=== PATIENT | male | born 1985 | race Caucasian/White ===

== ENCOUNTER 2020-09-08 08:55 | Day surgery (SDC) | payer OTHER ==
[~2020-09-08] VITALS: Ht 190.5 cm; Wt 105.0 kg
[~2020-09-08 08:55] MED LIST: HYDR12.517 PO; LISI-167 PO
[2020-09-08 09:32] VITALS: BP 133/89
[2020-09-08] MEDS ORDERED: LACTATED RINGERS 1,000 ML IV SCH (10:00)
[2020-09-08] MEDS ORDERED: CHLORHEXIDINE 15 ML UDC PO ONE (10:00)
[2020-09-08] MEDS ORDERED: MIDAZOLAM 1 MG/ML, 2ML ONE (10:51)
[2020-09-08] MEDS ORDERED: FENTANYL PF 250 MCG/5ML ONE (10:51)
[2020-09-08] MEDS ORDERED: morphine SULFATE/PF 0.5 MG/ML, 10ML ONE (11:30)
[2020-09-08] MEDS ORDERED: LIDOCAINE/PF 1%-EPI 1:200K, 30 ML ONE (11:30)
[2020-09-08] MEDS ORDERED: VANCOMYCIN 1,000 MG ONE (11:30)
[2020-09-08] MEDS ORDERED: BUPIVACAINE/PF 0.5% ONE (11:30)
[2020-09-08] MEDS ORDERED: BACITRACIN 50,000 UNIT ONE (11:31)
[2020-09-08] MEDS ORDERED: EPINEPHRINE 1 MG/ML, 1ML ONE (11:31)
[2020-09-08] MEDS ORDERED: PROPOFOL 50 ML ONE (12:25)
[2020-09-08] MEDS ORDERED: PROMETHAZINE 25 MG/ML, 1ML IVPush PRN (13:00)
[2020-09-08] MEDS ORDERED: DIAZEPAM 5 MG/ML, 2ML IVPush PRN (13:00)
[2020-09-08] MEDS ORDERED: ACETAMINOPHEN 325 MG TABLET PO PRN (13:00)
[2020-09-08] MEDS ORDERED: hydrALAzine 20 MG/ML, 1ML IV PRN (13:00)
[2020-09-08] MEDS ORDERED: FENTANYL PF 100 MCG/2ML IV PRN (13:00)
[2020-09-08] MEDS ORDERED: HYDROmorphone 1 MG/ML, 1ML INJ IVPush PRN (13:00)
[2020-09-08] MEDS ORDERED: ALBUTEROL SULFATE 2.5 MG/3 ML NPPB PRN (13:00)
[2020-09-08] MEDS ORDERED: LABETALOL 5MG/ML, 20ML IV PRN (13:00)
[2020-09-08] MEDS ORDERED: MEPERIDINE/PF 25MG/0.5ML IVPush PRN (13:00)
[2020-09-08] MEDS ORDERED: METHOCARBAMOL 1,000 MG in DEXTROSE 5% 100 ML IV PRN (13:00)
[2020-09-08] MEDS ORDERED: OXYcodone 5 MG/5 ML ORAL.SOL UDC PO PRN (13:00)
[2020-09-08] MEDS ORDERED: PROPOFOL 10 MG/ML, 20ML ONE (13:44)
[2020-09-08] MEDS ORDERED: NEOSTIGMINE 1 MG/ML, 10ML ONE (13:44)
[2020-09-08] MEDS ORDERED: CEFAZOLIN 1,000 MG ONE (13:44)
[2020-09-08] MEDS ORDERED: GLYCOPYRROLATE 0.2MG/1ML, 5ML ONE (13:44)
[2020-09-08] MEDS ORDERED: ONDANSETRON 2MG/ML, 2ML ONE (13:44)
[2020-09-08] MEDS ORDERED: DEXAMETHASONE 4 MG/ML, 1ML ONE (13:44)
[2020-09-08] MEDS ORDERED: ROCURONIUM 10MG/ML,5ML ONE (13:44)
[2020-09-08] MEDS ORDERED: METOCLOPRAMIDE 5 MG/ML, 2ML ONE (13:58)
== END 2020-09-08 18:05 | disposition home or self-care (01) ==
LOC: OUT 08:55
PROVIDERS: ATTEND Orthopaedic Surgery Orthopaedic Surgery of the Spine
DX: M51.17 Intervertebral disc disorders with radiculopathy, lumbosacral region (principal); M51.16 Intervertebral disc disorders with radiculopathy, lumbar region; I10 Essential (primary) hypertension; G35 Multiple sclerosis; Z20.822 Contact with and (suspected) exposure to COVID-19; Z79.899 Other long term (current) drug therapy
CPT/HCPCS: 63030; 72100; 87635; J0171; J0690; J1100; J2250; J2405; J2704; J2710; J2765; J2800; J3010; J7120; J2274; J3370